=== PATIENT | male | born 1980 | race American Indian/Alaskan Native ===

== ENCOUNTER 2019-04-29 03:29 | Emergency (ER) | payer SELFPAY ==
[2019-04-29] MEDS ORDERED: FAMOTIDINE 20 MG TAB PO ONE (03:42)
[2019-04-29] MEDS ORDERED: dexAMETHasone 20 MG/5 ML VIAL IM ONE (03:42)
[2019-04-29 03:49] VITALS: BP 125/87
[2019-04-29] MEDS ORDERED: hydrOXYzine HCL 25 MG TAB PO ONE (03:52)
--- NOTE | 2019-04-29 04:24 | Emergency Department Report ---
ED General Adult HPI - General Chief complaint: Skin Rash Stated complaint: RASH Source: patient Mode of arrival: Ambulatory Limitations: No Limitations - History of Present Illness Initial comments: Patient is a 39-year-old -[place] male with no past medical history who presents to the ED with no past medical history who presents to the ED with complaint of acute onset persistent each erythematous maculopapular urticarial rashes diffusely for the last 2 days. Patient states that he had been taking NyQuil for upper respiratory infection. Patient states that the itching has worsened despite taking Benadryl at home. Patient denies swollen lips, swollen throat, swollen tongue, dysphagic, dysphonia, shortness of breath, cough, chest pain, wheezing, nausea, vomiting, diarrhea, abdominal pain, fever, chills, dizziness or urinary retention. MD Complaint: Itchy erythematous rash diffusely -: Sudden, days(s) (2) Location: face, neck, chest, back, abdomen, upper extremity, lower extremity Radiation: non-radiation Severity scale (0 -10): 7 Quality: burning, other (Itchy) Consistency: constant Improves with: none Worsens with: other (scratching) Associated Symptoms: denies other symptoms, rash (diffuse erythematous rashes). denies: confusion, chest pain, cough, diaphoresis, fever/chills, headaches, loss of appetite, malaise, nausea/vomiting, seizure, shortness of breath, syncope, weakness Treatments Prior to Arrival: none, other (Benadryl) - Related Data Previous Rx's Medication Instructions Recorded Last Taken Type Famotidine [Pepcid] 40 mg PO DAILY #30 tablet 04/29/19 Unknown Rx Prednisone [predniSONE 10 mg 10 mg PO .TAPER #21 tab.ds.pk 04/29/19 Unknown Rx (6-Day Pack, 21 Tabs)] hydrOXYzine PAMOATE [Vistaril] 50 mg PO Q6HR PRN #30 capsule 04/29/19 Unknown Rx Allergies Allergy/AdvReac Type Severity Reaction Status Date / Time No Known Allergies Allergy Unverified 04/29/19 03:35 ED Review of Systems ROS: Stated complaint: RASH Other details as noted in HPI Constitutional: denies: chills, fever Eyes: denies: eye pain, eye discharge, vision change ENT: denies: ear pain, throat pain Respiratory: denies: cough, shortness of breath, wheezing Cardiovascular: denies: chest pain, palpitations Endocrine: no symptoms reported Gastrointestinal: denies: abdominal pain, nausea, diarrhea Genitourinary: denies: urgency, dysuria Musculoskeletal: denies: back pain, joint swelling, arthralgia Skin: rash, change in color, pruritus, other (Diffuse erythematous maculopapular urticaria rashes). denies: lesions Neurological: denies: headache, weakness, paresthesias Psychiatric: denies: anxiety, depression Hematological/Lymphatic: denies: easy bleeding, easy bruising ED Past Medical Hx - Past Medical History Previous Medical History?: No - Surgical History Past Surgical History?: No - Social History Smoking Status: Current Every Day Smoker Substance Use Type: None - Medications Home Medications: Home Medications Medication Instructions Recorded Confirmed Last Taken Type Famotidine [Pepcid] 40 mg PO DAILY #30 tablet 04/29/19 Unknown Rx Prednisone [predniSONE 10 mg 10 mg PO .TAPER #21 tab.ds.pk 04/29/19 Unknown Rx (6-Day Pack, 21 Tabs)] hydrOXYzine PAMOATE [Vistaril] 50 mg PO Q6HR PRN #30 capsule 04/29/19 Unknown Rx ED Physical Exam - General Limitations: No Limitations General appearance: alert, in no apparent distress - Head Head exam: Present: atraumatic, normocephalic, normal inspection - Eye Eye exam: Present: normal appearance, PERRL, EOMI Pupils: Present: normal accommodation - ENT ENT exam: Present: normal exam, normal orophraynx, mucous membranes moist, TM's normal bilaterally, normal external ear exam - Neck Neck exam: Present: normal inspection, full ROM - Respiratory Respiratory exam: Present: normal lung sounds bilaterally. Absent: respiratory distress, wheezes, rales, rhonchi, chest wall tenderness, accessory muscle use, decreased breath sounds, prolonged expiratory - Cardiovascular Cardiovascular Exam: Present: regular rate, normal rhythm, normal heart sounds. Absent: systolic murmur, diastolic murmur, rubs, gallop - GI/Abdominal GI/Abdominal exam: Present: soft, normal bowel sounds. Absent: tenderness, guarding, rebound, hyperactive bowel sounds, hypoactive bowel sounds, organomegaly - Extremities Exam Extremities exam: Present: normal inspection, full ROM, normal capillary refill - Back Exam Back exam: Present: normal inspection, full ROM. Absent: muscle spasm, paraspinal tenderness - Neurological Exam Neurological exam: Present: alert, oriented X3, CN II-XII intact, normal gait, reflexes normal - Psychiatric Psychiatric exam: Present: normal affect, normal mood - Skin Skin exam: Present: warm, dry, intact, rash (Diffuse erythematous maculopapular urticarial rashes), erythema, urticaria ED Course Vital Signs 04/29/19 03:35 Temperature 97.8 F Pulse Rate 76 Respiratory 16 Rate Blood Pressure 125/87 O2 Sat by Pulse 95 Oximetry ED Medical Decision Making - Medical Decision Making This is a 39-year-old male who presented to the ED with complaint of acute onset persistent each erythematous maculopapular urticarial rashes. In the ED, patient is alert and oriented 3 and is not in distress with normal vital signs. Patient was treated in the ED for acute allergic reaction with steroid, Kelechi and Pepcid. On reevaluation, patient's itching resolved and patient was discharged home on prednisone Dosepak, Pepcid and Vistaril. Patient was advised to follow-up with his primary care physician in 5-7 days for reevaluation or return to the ED immediately if symptoms get worse. - Differential Diagnosis acute allergic reaction; Urticaria; Itching; insect bites; food allergy Critical care attestation.: If time is entered above; I have spent that time in minutes in the direct care of this critically ill patient, excluding procedure time. ED Disposition Clinical Impression: Acute urticaria, Itching with irritation Acute allergic reaction Qualifiers: Encounter type: initial encounter Qualified Code(s): T78.40XA - Allergy, unspecified, initial encounter Disposition: DC-01 TO HOME OR SELFCARE Is pt being admited?: No Does the pt Need Aspirin: No Condition: Stable Instructions: Urticaria (ED), Allergies (ED), Itchy Skin (ED) Additional Instructions: Take medications with food, drink plenty of fluids and follow-up with your primary care physician in 5-7 days for reevaluation. Return to the ED immediately if symptoms get worse. Prescriptions: Famotidine [Pepcid] 40 mg PO DAILY #30 tablet Prednisone [predniSONE 10 mg (6-Day Pack, 21 Tabs)] 10 mg PO .TAPER #21 tab.ds.pk hydrOXYzine PAMOATE [Vistaril] 50 mg PO Q6HR PRN #30 capsule PRN Reason: Itching Referrals: [facility] [Outside] - 3-5 Days Forms: Work/School Release Form(ED) Time of Disposition: 04:26 Print Language: POLISH
== END 2019-04-29 04:40 | disposition home or self-care (01) ==
LOC: ED 03:29
DX: T78.40XA Allergy, unspecified, initial encounter (principal); L50.8 Other urticaria; F17.200 Nicotine dependence, unspecified, uncomplicated; X58.XXXA Exposure to other specified factors, initial encounter
CPT/HCPCS: 96372; 99282; J1100